=== PATIENT | female | born 1980 | race Hispanic/Latino ===

== ENCOUNTER 2021-07-16 08:04 | Outpatient (CLI) | payer BC ==
[2021-07-16] MEDS ORDERED: Iopamidol 370 76% 100 ML VIAL ONE (11:50)
== END 2021-07-16 08:05 | disposition home or self-care (01) ==
LOC: CT 08:04
PROVIDERS: ATTEND Urology
DX: N20.0 Calculus of kidney (principal); N15.1 Renal and perinephric abscess; Z87.448 Personal history of other diseases of urinary system
CPT/HCPCS: 74178; Q9967